=== PATIENT | female | born 1940 | race Caucasian/White ===

== ENCOUNTER 2019-03-14 10:01 | Outpatient (CLI) | payer MEDICARE ==
--- NOTE | 2019-03-14 15:37 | CT ---
CT ABDOMEN AND PELVIS WITHOUT IV CONTRAST: Date: 03/14/19 Oral contrast was not given. INDICATION: Calculus of kidney. Flank pain and hematuria. Comparison made to a prior CT abdomen and pelvis with contrast performed 06/08/13. FINDINGS: Images through the lung bases are clear. Liver and spleen are unremarkable. Granulomatous calcifications and spleen again noted. Post cholecys tectomy change. Stomach and duodenum unremarkable. There is a new right adrenal mass measuring up to 2.5 cm, which has densities measured at 35, which i s concerning for malignancy. The left adrenal is unremarkable. Review of the kidneys showed no evidence of hydronephrosis. The ureters are normal caliber. There is a hyperdense lesion off the posterolateral left kidney which was described on the prior exam as an indeterminate lesion. It has increased in size, measuring 1.8 cm today, where as it previously measured 1.0 cm. This lesion is suspicious. There are two hyperdense tiny foci projecting from the lateral cortex of the mid and lower right kidn ey. One more anteriorly measures 1.0 cm. Another posteriorly measures 1.2 cm. There are several clumped nonobstructing calculi in the lower pole collecting structures of the right kidney, with the largest measuring up to 10.0 mm. There appear to be at least three of these calcifi cations. Urinary bladder is contracted and not adequately evaluated. Small bowel loops appear normal caliber. The colon is unremarkable with scattered diverticula on the left and diverticulosis in the sigmoid. Images through the pelvis show evidence of hysterectomy. Aorta normal caliber with peripheral calcifi cation. No adenopathy, mass, or free fluid identified. IMPRESSION: 1. New right adrenal mass which has densities concerning for neoplasm. 2. An enlarging hyperdense mass from the posterior superior cortex of the left kidney, which is susp icious. 3. There are two new hyperdense lesions from the right renal cortex as described above. 4. Nonobstructing calculi in the lower pole collecting structures of the right kidney. Follow-up CT abdomen with IV contrast, including delayed images, is suggested to further evaluate the renal lesions and the adrenal mass. POS: BRUCE
== END 2019-03-14 10:02 | disposition home or self-care (01) ==
LOC: BICCT 10:01
PROVIDERS: ATTEND Urology
DX: N20.0 Calculus of kidney (principal); N28.1 Cyst of kidney, acquired; N28.89 Other specified disorders of kidney and ureter; E27.8 Other specified disorders of adrenal gland
CPT/HCPCS: 36415; 74176; 80048; 83036

== ENCOUNTER 2019-03-24 12:58 | Outpatient (CLI) | payer MEDICARE ==
--- NOTE | 2019-03-24 13:43 | RAD ---
EXAM: XR Abdomen 1 View/KUB PROVIDED CLINICAL HISTORY: Renal insufficiency, renal calculi, renal cyst. COMPARISON: CT abdomen on 03/14/2019 FINDINGS: There are calcifications overlying the inferior pole right renal shadow likely related to renal calcu li. No suspicious calcifications are seen overlying the left renal shadow or along the course of either ureter. There are calcifications overlying the liver and spleen related to hepatic and splenic granulomata no espinoza on prior CT exam. Vascular calcifications are seen in the abdominal aorta and involving the iliac arteries. Surgical clips overlie the right upper quadrant. Bowel gas pattern is nonspecific. Minimal degenerative changes are seen in the spine. IMPRESSION: 1. Right nephrolithiasis.
--- NOTE | 2019-03-24 13:56 | ULT ---
Bilateral renal ultrasound CLINICAL INDICATION: Renal cyst COMPARISON: Noncontrast CT abdomen and pelvis on 03/14/2019 FINDINGS: Right kidney: Small subcentimeter anechoic structures are seen at the lateral aspect midportion and i nferior pole right kidney demonstrating characteristics most suggestive of renal cysts. There is no hydronephrosis visualized. There is an area of shadowing involving the inferior pole right kidney lik yoni corresponding to the inferior pole right renal calculus noted on CT exam. No perinephric fluid collection is identified. Right kidney measures 9.2 cm x 4.2 cm. Left kidney: An exophytic anechoic cystic lesion is seen at the inferior pole left kidney measuring 1 .8 cm. Definite posterior acoustic enhancement is not seen. Recent CT examination demonstrated an increased density lesion. This likely represents a Bosniak type II renal cystic lesion. No hydronephr osis or renal calculus is seen on the left. Left kidney measures 10 cm x 4.2 cm. Urinary bladder: Incompletely distended IMPRESSION: 1. Right renal cyst. 2. Anechoic cystic lesion inferior pole left kidney demonstrating characteristics most suggestive of a cyst; although, posterior acoustic enhancement is not visualized. This lesion demonstrates increased density on recent CT scan examination and likely represents a Bosniak type II renal cystic lesion. 3. Right nephrolithiasis. No hydronephrosis is seen bilaterally.
== END 2019-03-24 12:59 | disposition home or self-care (01) ==
LOC: ULT 12:58
PROVIDERS: ATTEND Urology
DX: N20.0 Calculus of kidney (principal); N28.1 Cyst of kidney, acquired; N28.9 Disorder of kidney and ureter, unspecified
CPT/HCPCS: 74018; 76770; 81001; 87086

== ENCOUNTER 2019-03-28 08:19 | Outpatient (CLI) | payer MEDICARE ==
--- NOTE | 2019-03-28 11:44 | CT ---
CT ABDOMEN AND PELVIS WITH AND WITHOUT IV CONTRAST 03/28/2019 CLINICAL INFORMATION: Disorder of kidney, ureter. Patient complains of right-sided pain and urinary incontinence. COMPARISON: Noncontrast CT abdomen and pelvis on 03/14/[address] abdomen and pelvis on 014 Technique: Multiple contiguous axial CT images are obtained through the abdomen and pelvis with IV contrast. Cor onal reformatted images are provided. FINDINGS: Lower Chest: Small pericardial effusion is again seen. The lung bases are clear. Vessels: Vascular calcifications are seen in the abdominal aorta and involving the iliac arteries. Abdomen: Portal vein:Patent Gallbladder: Surgically absent. Liver: Few calcified granulomata are seen. Spleen: Calcified granulomata are identified. Pancreas: within normal limits. Adrenals: Increased density right adrenal lesion measuring 2.9 cm with previous measurement of 2.4 cm . This lesion does not demonstrate characteristics compatible with an adrenal adenoma. The left adrenal gland demonstrates a normal CT appearance. Kidneys: Subcentimeter hypodense and hyperdense renal lesions are again seen involving the right kidn ey which are stable in size and appearance compared to noncontrasted study on 03/14/2019. An exophytic 1.8 cm increased density lesion is seen in the midportion left kidney. This does not demons trate enhancement and likely represents a Bosniak type II renal cystic lesion. Nonobstructing inferior pole right renal calculi are again identified. No ureteral calculus is seen, and there is no hydronephrosis. Bowel: Colonic diverticulosis is noted. Loops of small bowel are normal in caliber. Appendix: Not visualized, but there are no secondary signs to suggest appendicitis. Peritoneum: No ascites or free air; no fluid collection. Mesentery and Retroperitoneum: No enlarged mesenteric or retroperitoneal lymph nodes. Abdominal Wall: within normal limits. Pelvis: Reproductive Organs: Evidence of hysterectomy. Pelvis within normal limits. Bladder: within normal limits. Bones: No suspicious lytic or sclerotic osseous lesions are identified. IMPRESSION: 1. Right adrenal mass which cannot be characterized as an adrenal adenoma, and this mass has enlarged compared to study on 03/14/2019. Neoplastic process is a differential consideration. 2. Nonobstructing right renal calculi. 3. 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 4. Postcholecystectomy changes. 5. Colonic diverticulosis. 6. Hysterectomy. 7. Small pericardial effusion.
[2019-03-28] MEDS ORDERED: Iopamidol 370 76% 100 ML VIAL ONE (12:00)
== END 2019-03-28 08:20 | disposition home or self-care (01) ==
LOC: CT 08:19
PROVIDERS: ATTEND Urology
DX: N28.89 Other specified disorders of kidney and ureter (principal); N20.0 Calculus of kidney; I31.3 Pericardial effusion (noninflammatory); Z90.711 Acquired absence of uterus with remaining cervical stump; K57.30 Diverticulosis of large intestine without perforation or abscess without bleeding
CPT/HCPCS: 74178; 82565; Q9967

== ENCOUNTER 2019-12-12 01:58 | Inpatient (IN) | payer MEDICARE, OTHER ==
[2019-12-12] MEDS ORDERED: Albuterol 200 PUFF (6.7GM INHALER) INH SCH (02:30)
[2019-12-12 02:52] LABS: ALT (SGPT) 10 U/L (8-55); AST (SGOT) 16 U/L (5-34); Albumin 4.3 g/dL (3.4-4.8); Alkaline Phosphatase 108 U/L (40-110); Anion Gap 19 mmol/L (10-20); BUN (Urea Nitrogen) 15 mg/dL (9.8-20.1); Bilirubin, Total 0.3 mg/dL (0.2-1.2); Calc. Creatinine Clearance 0 mL/min (70-130); Calcium 9.8 mg/dL (7.8-10.44); Carbon Dioxide 20 mmol/L (23-31); Chloride 103 mmol/L (98-107); Estimated GFR-MDRD 24; Globulin 2.9 g/dL (2.4-3.5); Glucose 170 mg/dL (83-110); Potassium 4.2 mmol/L (3.5-5.1); Protein, Total 7.2 g/dL (6.0-8.3); Sodium 138 mmol/L (136-145)
[2019-12-12 02:56] LABS: Hemoglobin 9.5 g/dL (12.0-16.0); Mean Corpuscular Hemoglobin 31.9 pg (27.0-31.0); Mean Corpuscular Volume 93.8 fL (78.0-98.0); Mean Platelet Volume 7.2 fL (7.4-10.4); Platelet Count 238 thou/uL (130-400); RBC Distribution Width 19.6 % (11.5-14.5); Red Blood Cell (RBC) Count 2.96 mill/uL (4.20-5.40); White Blood Cell (WBC) Count 13.3 thou/uL (4.8-10.8)
[2019-12-12] MEDS ORDERED: Dexamethasone 10 MG/ML VIAL ONE (02:56)
[2019-12-12 03:10] LABS: Anisocytosis SLIGHT = 6-15 cells (100X) (0-5/hpf); Band 39 % (5-11); Lymphocytes 1 % (21-51); MDiff Complete? YES; Metamyelocyte 3 % (0-0); Monocytes 6 % (0-10); Myelocyte 1 % (0-0); Neutrophil 50 % (42-75); Platelet Morphology Comment Appears Adequate; Polychromasia SLIGHT = 2-3 cells (100X) (0-2/hpf); Tear Drops SLIGHT = 2-5 cells (100X) (0-1/hpf)
[2019-12-12] MEDS ORDERED: Albuterol 200 PUFF (6.7GM INHALER) ONE (03:17)
[2019-12-12] MEDS ORDERED: Vancomycin 1 GM/200 ML BAG ONE (03:36)
[2019-12-12] MEDS ORDERED: Cefepime 2 GM VIAL ONE (03:36)
[2019-12-12] MEDS ORDERED: Dextrose 50% Abboject 50 ML SYRINGE SLOW IVP PRN (04:42)
[2019-12-12] MEDS ORDERED: HumaLOG 300 UNITS/3 ML VIAL SC PRN (04:42)
[2019-12-12] MEDS ORDERED: Dextrose 5% in Water 1,000 ML IV PRN (04:42)
--- NOTE | 2019-12-12 05:41 | HP ---
PRIMARY CARE PROVIDER: Formerly Dr. Adler, none currently. PRIMARY ONCOLOGIST: Dr. Moore with [facility], [place], [place]. CHIEF COMPLAINT: Shortness of breath. HISTORY OF PRESENT ILLNESS: This is a 79-year-old female, who presents to [facility] Emergency Department complaining of less than 1-day history of progressive shortness of breath. 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 The patient states she was diagnosed approximately four months prior to this evaluation and undergoes her treatment at [facility] in [place], [place]. The patient states she began to experience increased shortness of breath approximately 1500 hours on 12/11/2019, prompting her to increase the frequency of her bronchodilator therapy and DuoNeb at home. The patient states the nebulized treatments did not improve her symptoms and she became increasingly short of breath. The patient does admit to using home oxygen at 3 L/minute by nasal cannula, which did not improve her symptoms. The patient denied any documented fever, chills, or exposure history, but does state that she travels to [place] to receive her chemotherapy sessions as well as accompany her to the grocery store, but does not get out and go into the stores. The patient denied any known exposure to COVID-19 or family members with similar symptoms. In the emergency room, the patient underwent general evaluation including portable chest x-ray imaging and CT angiogram of the chest showing bilateral diffuse infiltrates, concerning for potential pneumonitis. The patient received IV vancomycin, cefepime, intravenous normal saline, and Decadron in the emergency room. PAST MEDICAL HISTORY: 1. Hypothyroidism. 2. Hypertension. 3. Diabetes mellitus type 2. 4. Question of adrenal carcinoma with metastasis to the lungs. 5. Chronic hypoxic respiratory failure, on oxygen supplementation at 3 L/minute by nasal cannula. PAST SURGICAL HISTORY: 1. Status post appendectomy. 2. Status post cholecystectomy. 3. Status post gastric bypass. 4. Status post hysterectomy. CURRENT MEDICATIONS: 1. Nortriptyline 25 mg p.o. b.i.d. 2. Atorvastatin 20 mg p.o. daily. 3. Oxybutynin 5 mg p.o. daily. 4. Metformin 1000 mg p.o. b.i.d. 5. Folic acid 1 mg p.o. daily. 6. Alprazolam 1 mg p.o. daily p.r.n. 7. Amlodipine 5 mg p.o. daily. ALLERGIES: NO KNOWN DRUG ALLERGIES. FAMILY HISTORY: No inheritable diseases per the patient's report. SOCIAL HISTORY: Resides in [facility]. Functional of all activities of daily living. No current alcohol, tobacco, or illicit drug use. . REVIEW OF SYSTEMS: CONSTITUTIONAL: Negative for weight loss or gain, ability to conduct usual activities. SKIN: Negative for rash, itching. EYES: Negative for double vision, pain. ENT/MOUTH: Negative for nose bleeding, neck stiffness, pain, tenderness. CARDIOVASCULAR: Negative for palpitations, dyspnea on exertion, orthopnea. RESPIRATORY: Negative for shortness of breath, wheezing, cough, hemoptysis, fever or night sweats. GASTROINTESTINAL: Negative for poor appetite, abdominal pain, heartburn, nausea, vomiting, constipation, or diarrhea. GENITOURINARY: Negative for urgency, frequency, dysuria, nocturia. MUSCULOSKELETAL: Negative for pain, swelling. NEUROLOGIC/PSYCHIATRIC: Negative for anxiety, depression. ALLERGY/IMMUNOLOGIC: Negative for skin rash, bleeding tendency. Otherwise, negative except as stated per HPI. PHYSICAL EXAMINATION: VITAL SIGNS: On admission, blood pressure 115/55, pulse 123, respiratory rate 34, temperature 97.9 degrees Fahrenheit, and O2 saturation 98% on room air. GENERAL APPEARANCE: This is a 79-year-old female, alert and oriented x3, pleasant, responsive, in no acute distress. HEENT: Pupils are equal, round, and reactive to light and accommodation. Extraocular muscles are intact. No scleral icterus. No conjunctival injection. Nares patent. OP is clear. Teeth in fair repair. NECK: Supple. No cervical adenopathy. No thyromegaly. No carotid bruits. No JVD appreciated. Cervical spine with full active and passive range of motion. No meningeal signs noted. CHEST: Diminished breath sounds in the bases bilaterally. Occasional rhonchi. CARDIOVASCULAR: S1 and S2 with tachycardia. No murmur, rub, or gallop appreciated. ABDOMEN: Rounded, soft, nontender, and nondistended. Bowel sounds are positive in all 4 quadrants. There is no hepatosplenomegaly. No abdominal bruits. No rebound or guarding appreciated. EXTREMITIES: Warm and dry with fair turgor. No clubbing, cyanosis, or asymmetric edema appreciated. Pulses palpable distally at the dorsalis pedis, posterior tibial, and popliteal arteries bilaterally. Capillary refill less than 2 seconds. NEUROLOGIC: Cranial nerves 2 through 12 are grossly intact. No focal or lateralizing signs appreciated. PERTINENT LABORATORY AND X-RAY FINDINGS: Sodium 138, potassium 4.2, chloride 103, CO2 of 20, BUN 15, creatinine 2.04, estimated GFR of 24, glucose 170, lactic acid level 4.5, calcium 9.8. LFTs within normal limits. BNP 30. Troponin I negative x1. CBC showed a white blood cell count of 13.3, hemoglobin 9.5, hematocrit 28, platelet count 238 with 50% neutrophils and 39% bandemia. Portable chest x-ray dated 12/12/[address] angiogram of the chest dated 12/12/2019 showed bilateral infiltrates with prominent nodule in the right upper lobe. No evidence for pulmonary embolus. ASSESSMENT AND PLAN: 1. Sepsis secondarily to pneumonia, suspected COVID-19 pneumonitis. The patient will be admitted to the telemetry unit. Awaiting COVID-19 PCR. Continue Zithromax 500 mg IV daily with additional Rocephin 2 g IV q.24 hours. Continue bronchodilator therapy as outlined below. Respiratory and droplet isolation. Serial lactic acid evaluation per protocol. 2. Lung carcinoma with current chemotherapy. Continue supportive management. Outpatient followup with [facility] for timing of next treatment. 3. Acute on chronic hypoxic respiratory failure secondarily to #1. Continue oxygen supplementation to maintain O2 saturations greater than or equal to 90%. Albuterol metered dose inhaler, 2 puffs inhaled q.4 hours. 4. Acute kidney injury on chronic kidney disease stage 3. Continue intravenous normal saline at 100 mL/h. Avoid nephrotoxic agents and limit contrast exposure. Repeat creatinine in the a.m. 5. Diabetes mellitus type 2. Insulin sliding scale for reflexive coverage. Confirm home diabetic regimen. Accu-Cheks a.c. and at bedtime. ADA diet. 6. Prophylaxis. SCDs while in bed. Pepcid 20 mg p.o. b.i.d. Respiratory isolation per protocol. 7. Code status is full. Surrogate medical decision maker is the patient's spouse. Job ID: [id number]
[2019-12-12] MEDS ORDERED: Sodium Chloride 0.9% 1,000 ML IV SCH (06:00)
[2019-12-12 06:01] LABS: Lactic Acid 4.5 mmol/L (0.5-2.2)
[2019-12-12] MEDS ORDERED: Acetaminophen 500 MG TAB PO PRN (06:26)
[2019-12-12] MEDS ORDERED: Albuterol Sulfate 1.25 MG/3 ML NEB NEB PRN (06:26)
[2019-12-12] MEDS ORDERED: Benzonatate 100 MG CAP PO PRN (06:26)
[2019-12-12] MEDS ORDERED: hydrALAZINE 20 MG/ML VIAL SLOW IVP PRN (06:26)
[2019-12-12] MEDS ORDERED: Ondansetron PF 4 MG/2 ML Vial IVP PRN (06:26)
[2019-12-12] MEDS ORDERED: Ondansetron ODT 4 MG TAB PO PRN (06:26)
[2019-12-12] MEDS ORDERED: cefTRIAXone\\ROCEPHIN 2 GM VIAL ONE (06:41)
[2019-12-12] MEDS ORDERED: Azithromycin 500 MG VIAL ONE (06:41)
[2019-12-12] MEDS ORDERED: Albuterol Sulfate 1.25 MG/3 ML NEB NEB SCH (06:45)
[2019-12-12] MEDS ORDERED: cefTRIAXone\\ROCEPHIN 2 GM in Sodium Chloride 0.9% 100 ML IVPB SCH ×2 (06:45→08:00)
[2019-12-12] MEDS: Sodium Chloride 0.9% 1,000 ML IV SCH ×2 (06:50→14:29)
[2019-12-12] MEDS ORDERED: Albuterol Sulfate 1.25 MG/3 ML NEB ONE (07:10)
--- NOTE | 2019-12-12 07:10 | CT ---
PRELIMINARY REPORT/[facility]/EMERGENCY AFTER HOURS PROCEDURE: EXAM: CTA Chest with Intravenous Contrast CLINICAL HISTORY: Pt reports increasing dyspnea throughout the day today. Denies chest pain, fever, or palpitations. No alleviating factors. Exacerbated by exertion. Pt has history of lung CA. Does not take blood thinner s. Last chemo was 3 weeks ago. No known infectious exposures TECHNIQUE: Axial CTA images of the chest with intravenous contrast. Three-dimensional MIP/volume rendered reform ations were performed. CONTRAST: With; 60ML ISOVUE 370 COMPARISON: None provided. FINDINGS: PULMONARY ARTERIES There is no intraluminal filling defect suspicious for PE. AORTA No thoracic aortic aneurysm or dissection. LUNGS Nonspecific, extensive, patchy, bilateral groundglass infiltrates most consistent with diffuse infect ious pneumonitis. A spiculated 2.8 cm mass in the posteromedial right upper lobe consistent with primary pulmonary judi gnancy. PLEURAL SPACES No pleural effusion. No pneumothorax. HEART AND MEDIASTINUM Coronary artery disease. BONES No focal osseous abnormality or acute fracture. UPPER ABDOMEN Calcified granulomas in the spleen. Calcified granulomas in the liver. MISCELLANEOUS: Atherosclerosis. IMPRESSION: 1. There is no intraluminal filling defect suspicious for PE. 2. Nonspecific, extensive, patchy, bilateral groundglass infiltrates most consistent with diffuse inf ectious pneumonitis. 3. A spiculated 2.8 cm mass in the posteromedial right upper lobe consistent with primary pulmonary m alignancy. 4. Coronary artery disease. 5. Atherosclerosis. ELECTRONICALLY SIGNED BY: Mariano Thibodeaux MD Dec 12, 2019 3:25:29 AM CDT This report is intended for review by the ordering physician only, in accordance of law. If you recei ve this report in error, please call [facility] at [phone]. FINAL REPORT EMERGENCY AFTER HOURS CTA CHEST WITH CONTRAST: FINDINGS/IMPRESSION: I agree with the findings and impression given in the preliminary report per [facility] physici an. 1. No evidence of pulmonary thromboembolism. 2. Multifocal peripheral opacities are consistent with COVID pneumonia. 3. Spiculated mass in the right upper lobe is concerning for lung malignancy. POS: MARIZOL
--- NOTE | 2019-12-12 07:53 | RAD ---
XR Chest 1 View Portable HISTORY: Lung cancer, shortness of breath COMPARISON: None FINDINGS: The heart size is normal. There are changes of old granulomatous disease. The lungs are wel l expanded without focal areas of consolidation, pneumothorax or pleural effusions. IMPRESSION: No radiographic evidence of acute cardiopulmonary process.
[2019-12-12] MEDS ORDERED: Dexamethasone 4 mg/ml Vial ONE (08:13)
[2019-12-12] MEDS ORDERED: Famotidine/PF 20 mg/2ml Vial ONE (08:13)
[2019-12-12] MEDS ORDERED: Dexamethasone 4 MG TAB ONE (08:16)
[2019-12-12] MEDS: Azithromycin 500 MG in Sodium Chloride 0.9% 250 ML 250 ML IVPB SCH (09:13)
[2019-12-12] MEDS: Dexamethasone 4 MG TAB PO SCH (09:13)
[2019-12-12] MEDS: Famotidine 20 MG TAB PO SCH (09:13)
[2019-12-12 09:35] VITALS: BMI 22.6
[2019-12-12] MEDS ORDERED: traMADol HCl 50 MG TAB PO PRN (09:35)
[2019-12-12] MEDS ORDERED: Metoclopramide HCl 10 MG TAB PO PRN (09:35)
[2019-12-12 10:33] LABS: Lactic Acid 7.5 mmol/L (0.5-2.2)
[2019-12-12 11:27] LABS: Bilirubin Negative (Negative); Blood, Urine Negative (Negative); Clarity Clear (Clear); Glucose, Urine (Dipstick) 100 mg/dL (Negative); Ketone, Urine Negative (Negative); Leukocyte 250 Leu/uL (Negative); Nitrite Negative (Negative); Protein, Urine (Dipstick) Negative (Neg-Trace); RBC/HPF 0-3 HPF (0-3); Specific Gravity, Urine 1.015 (1.002-1.036); Squamous Epithelial None Seen HPF (0-3); Urobilinogen Normal mg/dL (Less than 2); pH, Urine 5.5 (5.0-9.0)
[2019-12-12] MEDS ORDERED: HumaLOG 300 UNITS/3 ML VIAL ONE (11:40)
[2019-12-12] MEDS: HumaLOG 300 UNITS/3 ML VIAL SC PRN (11:43)
[2019-12-12 11:55] LABS: Bacteria/HPF 1+ HPF (None Seen)
--- NOTE | 2019-12-12 13:39 | PDOC.EVN ---
Event Note - Event Note Event Note: Seen and examined. Patient states she is feeling much better then before she arrived. Breathing comfortably on low flow NC. Covid negative, though CTA chest concerning for bilateral PNA that has a Covid pattern. Afebrile. Mild UTI. Uptrending lactic acid, increased fluid rate. Will repeat lactic acid. Time was given for questions, all answered in detail.
[2019-12-12] MEDS ORDERED: DICYCLOMINE HCL 10 MG PO SCH (15:00)
[2019-12-12 15:10] LABS: Lactic Acid 4.2 mmol/L (0.5-2.2)
[2019-12-12] MEDS ORDERED: Non-Formulary Item 1 EACH (Glyburide/Metformin Hcl [Glyburide/Metformin] 1 TABLET) PO SCH (17:00)
[2019-12-12] MEDS: metFORMIN 500 MG TAB PO SCH (17:27)
[2019-12-12] MEDS: glyBURIDE 5 MG TAB PO SCH (17:28)
[2019-12-12] MEDS: Dicyclomine 10 MG CAP PO SCH ×2 (17:29→20:12)
[2019-12-12] MEDS ORDERED: Simvastatin 20 MG TAB PO SCH (21:00)
--- NOTE | 2019-12-12 22:43 | PDOC.EVN ---
Event Note - Event Note Event Note: Nurse called, family irritated about transfer to covid unit. I called family and spoke to them by phone about reasons for transfer. Family agreed to transfer to covid unit.
[2019-12-12] MEDS ORDERED: Nortriptyline HCl 25 MG CAP PO SCH (23:30)
[2019-12-13] MEDS: ALPRAZolam 1 MG TAB PO PRN ×2 (00:02→22:54)
[2019-12-13] MEDS: Sodium Chloride 0.9% 1,000 ML IV SCH (00:03)
[2019-12-13 05:35] LABS: Band 6 % (5-11); Eosinophils 1 % (0-10); Lymphocytes 3 % (21-51); MDiff Complete? YES; Mean Corpuscular HGB CONC 32.5 g/dL (32.0-36.0); Mean Corpuscular Hemoglobin 30.6 pg (27.0-31.0); Mean Corpuscular Volume 93.9 fL (78.0-98.0); Mean Platelet Volume 7.6 fL (7.4-10.4); Metamyelocyte 1 % (0-0); Monocytes 5 % (0-10); Myelocyte 1 % (0-0); Neutrophil 83 % (42-75); Platelet Count 196 thou/uL (130-400); Platelet Morphology Comment Appears Adequate; RBC Distribution Width 19.8 % (11.5-14.5); RBC Morphology Normal; Red Blood Cell (RBC) Count 2.29 mill/uL (4.20-5.40); White Blood Cell (WBC) Count 19.8 thou/uL (4.8-10.8)
[2019-12-13 06:16] LABS: Anion Gap 14 mmol/L (10-20); BUN (Urea Nitrogen) 18 mg/dL (9.8-20.1); Calc. Creatinine Clearance 28 mL/min (70-130); Calcium 8.3 mg/dL (7.8-10.44); Carbon Dioxide 20 mmol/L (23-31); Chloride 109 mmol/L (98-107); Estimated GFR-MDRD 31; Glucose 195 mg/dL (83-110); Potassium 4.3 mmol/L (3.5-5.1); Sodium 139 mmol/L (136-145)
[2019-12-13] MEDS: cefTRIAXone\\ROCEPHIN 2 GM in Sodium Chloride 0.9% 100 ML IVPB SCH (06:26)
[2019-12-13] MEDS: HumaLOG 300 UNITS/3 ML VIAL SC PRN (06:26)
[2019-12-13] MEDS: Dexamethasone 4 MG TAB PO SCH (07:38)
[2019-12-13] MEDS: Dicyclomine 10 MG CAP PO SCH ×3 (07:38→20:52)
[2019-12-13] MEDS: Famotidine 20 MG TAB PO SCH (07:38)
[2019-12-13] MEDS: glyBURIDE 5 MG TAB PO SCH ×2 (07:39→17:43)
[2019-12-13] MEDS: metFORMIN 500 MG TAB PO SCH ×2 (07:39→17:43)
[2019-12-13] MEDS ORDERED: Nortriptyline HCl 25 MG CAP PO SCH ×2 (09:00→21:00)
[2019-12-13] MEDS ORDERED: Fluticasone Propionate Nasal Spray 16 gm Bottle NASAL SCH (09:00)
[2019-12-13] MEDS ORDERED: Non-Formulary Item 1 EACH (Benazepril/Hydrochlorothiazide [Benazepril-Hctz 20-12.5 Mg Tab PO SCH (09:00)
[2019-12-13] MEDS ORDERED: Lidocaine 2% Viscous Solution 10 ML, Aluminum & Magnesium Hydroxide 30 ML SSW SCH (11:45)
[2019-12-13] MEDS: Azithromycin 500 MG in Sodium Chloride 0.9% 250 ML 250 ML IVPB SCH (12:15)
[2019-12-13 14:05] LABS: Lactic Acid 1.5 mmol/L (0.5-2.2)
--- NOTE | 2019-12-13 15:26 | PDOC.HOSPP ---
- Subjective Subjective: Seen and examined. Complaining of upset stomach and nausea, though she has not vomited. Denies diarrhea. Abdomen soft nontender. At a G.I. cocktail. Her hemoglobin has down trended and we are giving packed red blood cells. With IV fluids her renal function has improved and her lactic acid is normalized. Her COVID was negative, though CTA chest with pattern of COVID PNA. We are repeating COVID and COVID AB testing. Time was given for questions, all answered in detail. - Objective Vital Signs & Weight: Vital Signs (12 hours) Temp Pulse Resp BP Pulse Ox 12/13/19 12:00 98.3 F 97 20 148/75 H 94 L 12/13/19 07:59 98.4 F 103 H 20 133/57 L 96 Weight Admit Weight 132 lb 4.438 oz Weight 132 lb 4.438 oz I&O: 12/12/19 12/13/19 12/14/19 06:59 06:59 06:59 Output Total 200 Balance -200 Result Diagrams: 12/13/19 04:55 12/13/19 04:55 Radiology Reviewed by me: Yes Hospitalist ROS - Review of Systems All other systems reviewed; all pertinent +/- noted in HPI/Subj - Medication Medications: Active Medications Generic Name Dose Route Start Last Admin Trade Name Freq PRN Reason Stop Dose Admin Acetaminophen 1,000 mg 12/12/19 06:26 12/12/19 17:27 Tylenol PO 1,000 mg Q6H PRN Administration Mild Pain (1-3) Alprazolam 1 mg 12/12/19 09:35 12/13/19 00:02 Xanax PO 1 mg TID PRN Administration Anxiety Dexamethasone 6 mg 12/12/19 08:00 12/13/19 07:38 Decadron PO 6 mg QAM-WM JEREMY Administration Dicyclomine HCl 10 mg 12/12/19 15:00 12/13/19 07:38 Bentyl PO 10 mg TID JEREMY Administration Glyburide 5 mg 12/12/19 17:00 12/13/19 07:39 Diabeta PO 5 mg BID-WM JEREMY Administration Azithromycin 500 mg/ Sodium 250 mls @ 250 mls/hr 12/12/19 08:00 12/13/19 12: 15 Chloride IVPB 250 mls 0800 JEREMY Administration Ceftriaxone Sodium 2 gm/ 100 mls @ 200 mls/hr 12/13/19 06:00 12/13/19 06:26 Sodium Chloride IVPB 100 mls 0600 JEREMY Administration Insulin Human Lispro 0 units 12/12/19 04:42 12/13/19 06:26 Humalog SC 2 units .MODERATE SLIDING SC PRN Administration Moderate Correctional Scale Metformin HCl 500 mg 12/12/19 17:00 12/13/19 07:39 Glucophage PO 500 mg BID-WM JEREMY Administration Pantoprazole Sodium 40 mg 12/13/19 09:00 12/13/19 07:38 Protonix PO 40 mg DAILY JEREMY Administration Sodium Chloride 10 ml 12/12/19 21:00 12/13/19 14:26 Flush - Normal Saline IVF 10 ml Q12HR JEREMY Administration Sodium Chloride 10 ml 12/12/19 10:13 12/13/19 12:15 Flush - Normal Saline IVF 10 ml PRN PRN Administration Saline Flush - Exam General Appearance: awake alert, ill appearing Eye: PERRL ENT: normocephalic atraumatic, moist mucosa Neck: supple, symmetric, no lymphadenopathy Heart: no murmur, no gallops Respiratory: no rales, no ronchi, normal chest expansion, no tachypnea, wheezes Gastrointestinal: soft, non-tender, no guarding, no rigidity Extremities: no edema Skin: no lesions, no rashes Neurological: cranial nerve grossly intact, no focal deficits Musculoskeletal: generalized weakness Psychiatric: A&O x 3 Hosp A/P (1) Pneumonia due to COVID-19 virus Code(s): U07.1 - COVID-19; J12.89 - OTHER VIRAL PNEUMONIA Status: Acute (2) Shortness of breath Code(s): R06.02 - SHORTNESS OF BREATH Status: Acute (3) Lung cancer Code(s): C34.90 - MALIGNANT NEOPLASM OF UNSP PART OF UNSP BRONCHUS OR LUNG Status: Acute (4) Nausea & vomiting Code(s): R11.2 - NAUSEA WITH VOMITING, UNSPECIFIED Status: Acute (5) Anemia Code(s): D64.9 - ANEMIA, UNSPECIFIED Status: Acute (6) DM (diabetes mellitus) Code(s): E11.9 - TYPE 2 DIABETES MELLITUS WITHOUT COMPLICATIONS Status: Acute (7) HTN (hypertension) Code(s): I10 - ESSENTIAL (PRIMARY) HYPERTENSION Status: Acute (8) HLD (hyperlipidemia) Code(s): E78.5 - HYPERLIPIDEMIA, UNSPECIFIED Status: Acute (9) Metastasis from adrenal cancer Code(s): C79.9 - SECONDARY MALIGNANT NEOPLASM OF UNSPECIFIED SITE; C74.90 - MALIGNANT NEOPLASM OF UNSP PART OF UNSPECIFIED ADRENAL GLAND Status: Acute - Plan Plan: medical unit with telemetry pulumonary specific antibiotics steroids CT angiography of the chest is with bilateral groundglass opacities concerning for Covid pneumonia, however her Covid test is negative hemoglobin has down trended to seven, we will transfuse her 2 units of packed red blood cells acute kidney injury has improved with creatinine going from 2.0 to 1.6 lactic acid has normalized PRN medications for nausea and vomiting insulin for glucose control blood pressure control G.I. prophylaxis DVT prophylaxis
[2019-12-13] MEDS: Fluticasone Propionate Nasal Spray 16 gm Bottle NASAL SCH (17:44)
[2019-12-13 20:21] LABS: SARS-CoV-2 IgG Ab Non-Reactive (NonReactive); SARS-CoV-2 IgG Index 0.09 S/CO (< 1.40)
[2019-12-14] MEDS: cefTRIAXone\\ROCEPHIN 2 GM in Sodium Chloride 0.9% 100 ML IVPB SCH (04:59)
[2019-12-14 05:28] LABS: Hemoglobin 11.6 g/dL (12.0-16.0); Mean Corpuscular HGB CONC 33.8 g/dL (32.0-36.0); Mean Corpuscular Hemoglobin 30.1 pg (27.0-31.0); Mean Platelet Volume 7.7 fL (7.4-10.4); Platelet Count 205 thou/uL (130-400); RBC Distribution Width 18.8 % (11.5-14.5); Red Blood Cell (RBC) Count 3.85 mill/uL (4.20-5.40); White Blood Cell (WBC) Count 21.2 thou/uL (4.8-10.8)
[2019-12-14 05:45] LABS: Anion Gap 15 mmol/L (10-20); BUN (Urea Nitrogen) 17 mg/dL (9.8-20.1); Calc. Creatinine Clearance 39 mL/min (70-130); Calcium 8.9 mg/dL (7.8-10.44); Carbon Dioxide 22 mmol/L (23-31); Chloride 106 mmol/L (98-107); Estimated GFR-MDRD 46; Glucose 131 mg/dL (83-110); Potassium 4.4 mmol/L (3.5-5.1); Sodium 139 mmol/L (136-145)
[2019-12-14 05:52] LABS: Band 13 % (5-11); Eosinophils 4 % (0-10); Lymphocytes 3 % (21-51); MDiff Complete? YES; Monocytes 5 % (0-10); Neutrophil 75 % (42-75)
[2019-12-14 08:25] VITALS: TEMP 98.6
[2019-12-14] MEDS: Dexamethasone 4 MG TAB PO SCH (08:52)
[2019-12-14] MEDS: Azithromycin 500 MG in Sodium Chloride 0.9% 250 ML 250 ML IVPB SCH (08:53)
[2019-12-14] MEDS: Dicyclomine 10 MG CAP PO SCH (08:54)
[2019-12-14] MEDS: glyBURIDE 5 MG TAB PO SCH (08:54)
[2019-12-14] MEDS: metFORMIN 500 MG TAB PO SCH (08:54)
[2019-12-14] MEDS: Fluticasone Propionate Nasal Spray 16 gm Bottle NASAL SCH (08:55)
[2019-12-14 12:51] VITALS: BP 140/76
[2019-12-14 14:25] LABS: SARS-CoV-2 MS2 Positive; SARS-CoV-2 N Gene Negative; SARS-CoV-2 S Gene Negative; SARS-CoV-2 orf1ab Negative
--- NOTE | 2019-12-14 21:14 | DIS ---
DATE OF ADMISSION: 12/12/2019 DATE OF DISCHARGE: 12/14/2019 CHIEF COMPLAINT: Shortness of breath. PROCEDURES PERFORMED AND TREATMENTS RENDERED: The patient was admitted to the medical unit with telemetry for shortness of breath, please see full history and physical from 12/12/[address] Leyva for full details. 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 The patient has good followup with her Oncology at [facility] in [place], [place]. The patient has not had any exposure to COVID-19, and she has been quarantined in her house aside from trips to doctor's offices and occasionally to the grocery store, though she does state that she sits in the car while her goes into the grocery store. Despite this, the patient had a CT angiography of the chest, please see full report for details, the patient having extensive patchy bilateral ground-glass infiltrates, most consistent with diffuse infectious pneumonitis, this was concerning for COVID-19 pneumonia. The patient also with a 2.8 cm spiculated mass, which is known to her. The patient had COVID test, a rapid COVID test was negative, a PCR study. The patient had COVID antibody testing, which was negative. Despite this, we do know that these tests have a known false-negative rating of currently around 30% when I discussed case with the infectious disease specialist. The patient was placed on maximum medical therapy including pulmonary specific antibiotics and oral steroids, which is the latest treatment for COVID-19 infection per Infectious Disease specialist. With these medications, the patient's symptoms did improve dramatically. The patient does use oxygen therapy at home when needed. Over the course of her hospitalization, she had a good response. The patient has also had problems with anemia and she has required blood transfusions in the past. When the patient's hemoglobin reached 7.0, I did transfuse her packed red blood cells and she had a good response in her hemoglobin up to 11.6. I evaluated the patient daily throughout her hospitalization and on 12/14/2019, she is doing quite well. The patient is breathing on room air. She has been getting up to the restroom without assistance. She was recommended safe for discharge with close followup in the outpatient setting with primary care physician and her oncologist. CONDITION ON DISCHARGE: Stable. SPECIFIC INSTRUCTIONS FOR THE PATIENT/FAMILY: 1. The patient recommended to complete a full course of antibiotics and steroids. 2. The patient recommended to follow up with primary care physician in the next 5 to 7 days. 3. The patient recommended to follow up with Oncology at her upcoming appointment. 4. The patient recommended to take all other home medications as directed. 5. The patient recommended to use supplemental oxygen, breathing treatments, and all other pulmonary medications as directed if needed. 6. The patient recommended to follow up with all of her other specialists in the upcoming weeks. 7. The patient recommended to return to acute care hospital immediately if she is unable to comply with any of the previously mentioned steps. 8. The patient is recommended to return to acute care hospital immediately if signs or symptoms return, worsen, or any other new symptoms occur. DISCHARGE MEDICATIONS: Please see full discharge medication reconciliation for details. TIME SPENT: Greater than 37 minutes spent coordinating care and discharge process for this patient. Job ID: [id number]
--- NOTE | 2019-12-15 08:13 | PQF ---
Dear : Mikey Soliman Date 12/15/19 Please exercise your independent, professional judgment in responding to the clarification form. Clinical indicators are provided on the bottom of this form for your review Can you please further clarify if Sepsis is ruled in or ruled out? Sepsis [ XX ] Ruled in diagnosis [ XX ] Continue to treat [ ] Resolved [ ] Ruled out diagnosis [ ] Improving [ ] Cannot rule out diagnosis [ ] Other diagnosis [ ] Unable to determine Physician Signature: Date/Time: For continuity of documentation, please document condition throughout progress notes and discharge summary. Thank You. To be completed by CDI/Coding staff for physician review: Present Clinical Indicators - Signs / Symptoms / Labs Results and Location in Medical Record [ x ] VS: BP 115/55, pulse 123, RR 34, Temp 97.7 ED Provider pg.2 [ x ] Tachycardic, tachypneic and hypoxic ED Provider pg.3 [ x ] Sepsis- respiratory source ED Provider pg.3 [ x ] CT angiogram of the chest showing bilateral diffuse infiltrates, concerning for potential pneumonitis H and P pg.1 [ x ] Sepsis secondary to pneumonia, suspected COVID H and P pg.2 [ x ] COVID test is negative Hospitalist PN pg.6 12/12 [ x ] Blood culture- no growth for 48 hours Microbiology 12/11 [ x ] WBC 13.3H, 19.8H, 21.2H Laboratory [ x ] Lactic acid: 4.5H, 4.5H, 6.0H. 7.5H, 4.2H Laboratory [ x ] Acidosis HP 12/11 Present Risk Factors Results and Location in Medical Record [ x ] 79 yrs old H and P pg.1 [ x ] Metastatic lung cancer H and P pg.1 [ x ] Chronic hypoxic respi failure H and P pg.1 [ x ] Pneumonia H and P pg.2 [ x ] DM type 2 HP 12/11 [ x ] CKD stage 3 HP 12/11 [ x ] UTI Event Note 12/11 Present Treatments Results and Location in Medical Record [ x ] Chest X ray 12/11 chest X ray folder [ x ] Chest/Thorax CTA Chest/Thorax CTA folder 12/11 [ x ] Respiratory and droplet isoloation H and P pg.2 [ x ] IV Fluids MAR [ x ] Ceftriaxone 2gm IV MAR [ x ] Decadron 6mg PO MAR [ x ] Azithromycin 500mg PO MAR [ x ] Cefepime 2gm IV MAR [ x ] Rocephin 2gm IV MAR [ x ] Blood culture Collected 12/11 CDS/[employer] Metal [employer] Operator Signature: Dameon Mcdonough Phone #: [phone] Date: 12/15/19 This is a permanent part of the Medical Record [facility]
== END 2019-12-14 14:21 | disposition home or self-care (01) | DRG 871 ==
LOC: ERS 01:58 → ERHOLD 05:15 → 2NO 14:09 → 2SW 12-13 01:01
PROVIDERS: ADMIT Family Medicine; ATTEND Family Medicine
PROC: 8E0ZXY6 Isolation (ICD-10-PCS; principal; 2019-12-12)
PROC: 30233N1 Transfusion of Nonautologous Red Blood Cells into Peripheral Vein, Percutaneous Approach (ICD-10-PCS; 2019-12-12)
DX: A41.9 Sepsis, unspecified organism (principal); J18.9 Pneumonia, unspecified organism; J96.21 Acute and chronic respiratory failure with hypoxia; C74.90 Malignant neoplasm of unspecified part of unspecified adrenal gland; C78.00 Secondary malignant neoplasm of unspecified lung; N17.9 Acute kidney failure, unspecified; N39.0 Urinary tract infection, site not specified; E87.2 Acidosis; Z20.828 Contact with and (suspected) exposure to other viral communicable diseases; E03.9 Hypothyroidism, unspecified; N18.3 Chronic kidney disease, stage 3 (moderate); E11.22 Type 2 diabetes mellitus with diabetic chronic kidney disease; I12.9 Hypertensive chronic kidney disease with stage 1 through stage 4 chronic kidney disease, or unspecified chronic kidney disease; Z99.81 Dependence on supplemental oxygen; Z90.49 Acquired absence of other specified parts of digestive tract; Z90.710 Acquired absence of both cervix and uterus; Z98.84 Bariatric surgery status; Z79.84 Long term (current) use of oral hypoglycemic drugs; Z79.899 Other long term (current) drug therapy; D64.9 Anemia, unspecified
CPT/HCPCS: 36415; 36416; 36430; 71045; 71275; 80048; 80053; 81003; 81015; 82728; 83605; 83880; 84484; 85007; 85025; 85027; 85379; 86140; 86769; 86850; 86900; 86901; 87040; 87635; 93005; 94640; 94664; 96365; 96367; 96375; J0456; J0692; J0696; J1100; J3370; J3490; J7050; J8540; P9016; S0028; U0002; U0003

== ENCOUNTER 2020-11-16 04:11 | Emergency (ER) | payer MEDICARE ==
[2020-11-16 05:24] LABS: #Eosinphils 0.2 thou/uL (0.0-0.7); #Lymphocytes 0.9 thou/uL (1.20-3.40); #Monocytes 0.6 thou/uL (0.11-0.59); #Neutrophils 6.8 thou/uL (1.40-6.50); %Basophils 0.1 % (0.0-1.0); %Lymphocytes 10.9 % (21.0-51.0); %Monocytes 7.3 % (0.0-10.0); %Neutrophils 79.8 % (42.0-75.0); Mean Corpuscular HGB CONC 34.2 g/dL (32.0-36.0); Mean Corpuscular Hemoglobin 32.1 pg (27.0-31.0); Mean Corpuscular Volume 93.9 fL (78.0-98.0); Platelet Count 222 thou/uL (130-400); RBC Distribution Width 12.6 % (11.5-14.5); Red Blood Cell (RBC) Count 3.44 mill/uL (4.20-5.40); White Blood Cell (WBC) Count 8.5 thou/uL (4.8-10.8)
[2020-11-16 05:29] LABS: Bacteria/HPF 3+ HPF (None Seen); Bilirubin Negative (Negative); Blood, Urine 1+ (Negative); Clarity Turbid (Clear); Glucose, Urine (Dipstick) 100 mg/dL (Negative); Ketone, Urine Negative (Negative); Leukocyte 500 Leu/uL (Negative); Nitrite 2+ (Negative); Protein, Urine (Dipstick) 50 mg/dL (Neg-Trace); Specific Gravity, Urine 1.014 (1.002-1.036); Squamous Epithelial 0-3 HPF (0-3); Urobilinogen Normal mg/dL (Less than 2); WBC/HPF Greater than 50 HPF (0-3)
[2020-11-16 05:45] LABS: ALT (SGPT) 15 U/L (8-55); AST (SGOT) 24 U/L (5-34); Albumin 4.2 g/dL (3.4-4.8); Alkaline Phosphatase 94 U/L (40-110); Anion Gap 14 mmol/L (10-20); BUN (Urea Nitrogen) 23 mg/dL (9.8-20.1); Bilirubin, Total 0.5 mg/dL (0.2-1.2); Calc. Creatinine Clearance 0 mL/min (70-130); Calcium 9.9 mg/dL (7.8-10.44); Carbon Dioxide 24 mmol/L (23-31); Chloride 100 mmol/L (98-107); Globulin 2.6 g/dL (2.4-3.5); Glucose 148 mg/dL (83-110); Potassium 4.1 mmol/L (3.5-5.1); Protein, Total 6.8 g/dL (5.8-8.1); Sodium 134 mmol/L (136-145)
[2020-11-16] MEDS ORDERED: cefTRIAXone\\ROCEPHIN 1 GM VIAL ONE (06:01)
== END 2020-11-16 08:15 | disposition home or self-care (01) ==
LOC: ERS 04:11
DX: N39.0 Urinary tract infection, site not specified (principal); E11.9 Type 2 diabetes mellitus without complications; E03.9 Hypothyroidism, unspecified; I10 Essential (primary) hypertension; Z79.899 Other long term (current) drug therapy; Z85.118 Personal history of other malignant neoplasm of bronchus and lung; Z79.84 Long term (current) use of oral hypoglycemic drugs
CPT/HCPCS: 36415; 36416; 70450; 80053; 81003; 81015; 85025; 87086; 87186; 96365; J0696

== ENCOUNTER 2022-07-15 16:51 | Emergency (ER) | payer OTHER, MEDICARE ==
[2022-07-15] MEDS ORDERED: Boostrix 0.5 ML (Tdap) VIAL (>/=7 yrs of age) ONE (17:53)
[2022-07-15] MEDS ORDERED: Lidocaine 1% w/Epinephrine 1:100K 20 ML VIAL ONE (19:19)
== END 2022-07-15 20:44 | disposition home or self-care (01) ==
LOC: ERS 16:51
DX: S01.01XA Laceration without foreign body of scalp, initial encounter (principal); R91.1 Solitary pulmonary nodule; E11.9 Type 2 diabetes mellitus without complications; E03.9 Hypothyroidism, unspecified; I10 Essential (primary) hypertension; W01.0XXA Fall on same level from slipping, tripping and stumbling without subsequent striking against object, initial encounter; Z23 Encounter for immunization
CPT/HCPCS: 12002; 70450; 72125; 90471; 90715; 93005